=== PATIENT | male | born 1950 | race Caucasian/White ===

== ENCOUNTER 2023-08-09 09:36 | Emergency (ER) | payer MEDICARE, OTHER, SELFPAY ==
[2023-08-09 09:38] VITALS: BP 151/87
--- NOTE | 2023-08-09 10:20 | ED.GENMED ---
History of Present Illness
General
Chief Complaint: Fatigue
Time Seen by Provider: 08/09/23 10:05
History of Present Illness
History of Present Illness:
73-year-old male with history of hypertension presenting to the emergency department for an episode of nausea and 'the sweats '. Patient reports this morning he was on the toilet, with having a bowel movement. Denies any straining, he started to
feel unwell with nausea and diaphoresis. Denies associated chest pain or difficulty breathing. Patient was concerned because he was told in the past that he has calcifications around his aorta, however denies any known history of aneurysm. Denies
any fever or sick contacts. Denies any vomiting. Denies any focal weakness or sensory deficits to his extremities. Reports that he is feeling better. Denies additional acute medical complaints
Past History
Past History
ED Past Medical History: Cancer (Prostate), HTN, Hypercholesterolemia, Other (Polymyalgia rheumatica, sleep apnea, mildly dilated aortic root, diverticulitis, irritable bowel, back pain) and Other (diverticulosis)
ED Past Surgical History: Orthopedic
Social History
Tobacco: Non-smoker
Alcohol: Occasional
Drug: None
Personal:
Living: with family
Employment: Employed
Family History
Family History: Other (nc); Negative Early CAD or CAD
Phy Exam
Physical Exam
Physical Exam:
Reports normal GENERAL: Alert , in no apparent distress
EYE: pupils equal and reactive
NECK: Supple, no significant adenopathy.
ENT: o/p clr, mmm.
CARDIAC: Regular rate and rhythm .
LUNGS: Clear breath sounds bilaterally, no acute respiratory distress, no wheezes/rales/rhonchi
ABDOMEN: Soft, without focal tenderness, no r/g
NEUROLOGICAL: Alert and oriented, no focal neuro deficits
SKIN: Warm and dry, skin intact.
MUSCULOSKELETAL: No edema, well perfused.
PSYCH: Normal and appropriate interaction.
Course
Orders/Labs/Results
Orders:
Orders
08/09/23 10:18
Electrocardiogram (*1) Urgent
Reason for Study: Other
Other Reason for Exam: nausea
EKG- Treatment ONCE
08/09/23 10:48
Complete Blood Count/With Diff Urgent
Comprehensive Metabolic Panel Urgent
Troponin I Urgent
Abnormal Lab Results
08/09/23
10:48
RBC 3.92 L 10^6/uL
(4.70-6.10)
Hgb 11.6 L g/dL
(13.0-18.0)
Hct 33.9 L %
(39.0-52.0)
Absolute Monos (auto) 0.7 H 10^3/uL
(0.1-0.6)
Lymphocytes % 19.9 L %
(20.5-51.1)
Monocytes % 9.7 H %
(1.7-9.3)
BUN 23 H mg/dl
(9-20)
Total Protein 6.1 L g/dl
(6.3-8.2)
08/09/23 10:48
08/09/23 10:48
Vital Signs
Initial and Last Documented VS:
Initial Vital Signs
Temp Pulse Resp BP Pulse Ox
97.7 F 70 16 151/87 98
08/09/23 09:38 08/09/23 09:38 08/09/23 09:38 08/09/23 09:38 08/09/23 09:38
Last Documented Vital Signs
Temp Pulse Resp BP Pulse Ox
97.7 F 69 16 151/87 95
08/09/23 09:38 08/09/23 11:00 08/09/23 11:00 08/09/23 09:38 08/09/23 11:00
MDM/Problems Addressed
MDM/Problems Addressed:
73-year-old male with history of hypertension presenting for an episode of nausea and sweating prior to arrival. Vital signs on arrival significant for mild hypertension.
On physical exam, patient is resting comfortably, no acute distress or discomfort. Unremarkable cardiac, pulmonary, abdominal exam. Patient symptomatic. Presently hemodynamically stable. Low suspicion for pathology to patient symptoms. Patient
expresses concern over prior history of 'calcifications to aorta '. In review of EMR, patient had a CT chest in 12/12/2022 which showed calcifications of his coronary arteries, no findings of aneurysm. Suspected CAD. EKG obtained, nonischemic. No
focal neurologic deficits or concern for central neurologic process. Will plan for screening laboratory analysis and continue cardiac monitoring
11:30 -patient's labs are unremarkable. Troponin is undetectable. Vitals remained stable. On reassessment, patient continues to rest comfortably, asymptomatic, notes that he is still little fatigued. Otherwise without chest pain, nausea,
diaphoresis. 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 Patient agreeable to plan. Strict return precautions communicated and patient verbalized understanding
*Critical Care Note
Total Time (30-74mins, 75-104mins- exclusive of procedures): Not Applicable
ED Attending Note
-
Portions of this chart may have been created with voice recognition software.� Occasional wrong word or��sound alike� substitutions may have occurred due to the inherent limitations of voice recognition software.
Discharge Plan
Departure
Prescriptions:
No Action
multivitamin 1 EACH tablet
1 ea PO DAILY
leflunomide [Arava] 20 MG tablet
20 mg PO DAILY
Ca-D3-mag qh-xotj-hsn-rose-bor [Calcium 600-D3 Plus (mag-zinc)] 1 EACH tablet
1 ea PO DAILY
amitriptyline 10 MG tablet
10 mg PO HS
atorvastatin 40 mg Tablet
40 mg PO DAILY
lisinopril 20 mg Tablet
20 mg PO DAILY
fexofenadine 180 mg Tablet
180 mg PO DAILY PRN (Reason: Allergy symptoms)
amlodipine 5 mg Tablet
5 mg PO DAILY
prednisone 1 mg Tablet
1 mg PO DAILY
aspirin 81 mg Tablet,Chewable
81 mg PO DAILY
hydrochlorothiazide 25 mg Tablet
25 mg PO DAILY
fluticasone propionate 50 mcg/actuation [place],Suspension
2 spray INTRANASAL DAILY
doxycycline hyclate 100 mg Capsule
100 mg PO Q12 Qty: 28 0RF
oxycodone-acetaminophen [Percocet] 5-325 mg tablet
1 - 2 tab PO Q6HPRN PRN (Reason: pain) Qty: 14 0RF
Referrals:
Salomón Gillis MD [Family Provider] -
Interventions
Interventions:
*Risk Screen - Suicide Last Done: 08/09/23 09:38
*General Assessment Last Done: 08/09/23 09:38
*Neglect/Abuse Screening Last Done: 08/09/23 09:38
ED- Fall Risk Assessment Last Done: 08/09/23 11:00
*ED COVID-19 Vaccine History Last Done: 08/09/23 10:59
Discharge Date and Time
Print Language: SETSWANA
[2023-08-09 10:56] LABS: % Basophils 0.6 % (0-2); % Eosinophils 3.9 % (0-6); % Immature Granulocytes 0.3 % (0-0.5); % Lymphocytes 19.9 % (20.5-51.1); % Monocytes 9.7 % (1.7-9.3); % Neutrophils 65.6 % (42.2-75.2); Absolute Eosinophils 0.3 10^3/uL (0-0.7); Absolute Lymphocytes 1.4 10^3/uL (1.2-3.4); Absolute Monocytes 0.7 10^3/uL (0.1-0.6); Absolute Neutrophils 4.7 10^3/uL (1.4-6.5); Hematocrit 33.9 % (39.0-52.0); Hemoglobin 11.6 g/dL (13.0-18.0); Mean Corp Hgb Conc. 34.2 g/dL (33.0-37.0); Mean Corpuscular Hgb 29.6 pg (27.0-31.0); Mean Corpuscular Volume 86.5 fL (80.0-94.0); Mean Platelet Volume 9.1 fL (7.4-10.4); Nucleated Red Blood Cells % 0 % (-); Platelet Count 217 10^3/uL (130-400); Red Blood Cell Count 3.92 10^6/uL (4.70-6.10); Red Cell Dist. Width 12.2 % (11.5-14.5); White Blood Cell Count 7.2 10^3/uL (4.8-10.8)
[2023-08-09 10:58] VITALS: BMI 33.5
[2023-08-09 11:14] LABS: ALT (SGPT) 27 U/L (0-50); AST (SGOT) 32 U/L (17-59); Albumin 3.6 g/dl (3.5-5.0); Alkaline Phosphatase 74 U/L (38-126); Blood Urea Nitrogen 23 mg/dl (9-20); Calcium 8.9 mg/dl (8.4-10.2); Carbon Dioxide 29 mmol/L (22-30); Chloride 100 mmol/L (98-107); Estimated Creatinine Clearance 75 ml/min; Glucose 85 mg/dl (70-99); Sodium 135 mmol/L (135-145); Total Bilirubin 0.7 mg/dl (0.2-1.3); Total Protein 6.1 g/dl (6.3-8.2); eGFR > 60.00
[2023-08-09 11:20] LABS: Troponin I < 0.012 ng/ml
[2023-08-09 12:07] VITALS: BP 119/91
== END 2023-08-09 12:08 | disposition home or self-care (01) ==
LOC: EMR 09:36
PROVIDERS: EMERGENCY PHYSICIAN Student in an Organized Health Care Education/Training Program; FAMILY PHYSICIAN Family Medicine
DX: R53.83 Other fatigue (principal); I10 Essential (primary) hypertension
CPT/HCPCS: 99284; 80053; 84484; 85025; 93005

== ENCOUNTER 2024-01-21 09:37 | Day surgery (SDC) | payer MEDICARE, OTHER, SELFPAY ==
[2024-01-01 14:03] VITALS: BMI 32.7
[2024-01-01 14:08] LABS: Hematocrit 37.8 % (39.0-52.0); Hemoglobin 13.1 g/dL (13.0-18.0); Mean Corp Hgb Conc. 34.7 g/dL (33.0-37.0); Mean Corpuscular Hgb 30.3 pg (27.0-31.0); Mean Corpuscular Volume 87.3 fL (80.0-94.0); Mean Platelet Volume 9.8 fL (7.4-10.4); Platelet Count 248 10^3/uL (130-400); Red Blood Cell Count 4.33 10^6/uL (4.70-6.10); Red Cell Dist. Width 12.9 % (11.5-14.5); White Blood Cell Count 9.4 10^3/uL (4.8-10.8)
[2024-01-01 14:26] LABS: Glycohemoglobin (HgbA1c) 5.2 % (4.0-5.6)
[2024-01-01 14:39] LABS: ALT (SGPT) 23 U/L (0-50); AST (SGOT) 28 U/L (17-59); Albumin 4.4 g/dl (3.5-5.0); Alkaline Phosphatase 75 U/L (38-126); Blood Urea Nitrogen 27 mg/dl (9-20); Calcium 9.6 mg/dl (8.4-10.2); Carbon Dioxide 28 mmol/L (22-30); Chloride 99 mmol/L (98-107); Estimated Creatinine Clearance 68 ml/min; Glucose 78 mg/dl (70-99); Potassium 4.8 mmol/L (3.5-5.1); Sodium 139 mmol/L (135-145); Total Bilirubin 0.8 mg/dl (0.2-1.3); eGFR > 60.00
[2024-01-11 11:14] VITALS: BMI 32.7
[2024-01-21] VITALS (16 sets, daily range): BP systolic 100–133; BP diastolic 46–85; PULSE 68; O2SAT 98; BMI 32.7
[2024-01-21] MEDS: TYLENOL 650 MG PO ×4 (10:29→23:10)
[2024-01-21] MEDS: CELEBREX 200 MG PO (10:29)
[2024-01-21] MEDS: NORMOSOL-R/PLASMALYTE-A 1000 IV ×2 (11:02→18:41)
--- NOTE | 2024-01-21 13:17 | W.DS.TRANS ---
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
-
Discharge Instructions:
Discharge Diagnosis/Procedures L TKA Dr. Sidhu 01/21/24
Diet As tolerated
Activity With Walker
Driving Restrictions No driving
Bathing Restrictions OK to Shower
Instructions:
Stand-Alone Forms: Total Hip/Knee Replacement D/C
Changes to Home Medications: Yes
Discharge Medications:
DC Medications w/original date entered in [facility]
multivitamin 1 ea PO DAILY Supplement 09/10/19
calcium 600 mg-D3 20 mcg-magnesium 50 as-Je-gihddu-obie-boron tablet (Calcium 600-D3 Plus (mag-zinc)) 1 ea PO DAILY Supplement 01/05/20
aspirin 81 mg chewable tablet 81 mg PO DAILY Blood Clot Prevention/Tx 07/22/22
atorvastatin 40 mg tablet 80 mg PO DAILY High Cholesterol 07/22/22
fluticasone propionate 50 mcg/actuation nasal spray,suspension 2 spray intranasal DAILY Congestion 07/22/22
hydrochlorothiazide 25 mg tablet 25 mg PO DAILY Fluid Retention/Swelling 07/22/22
lisinopril 20 mg tablet 40 mg PO DAILY Blood Pressure 07/22/22
duloxetine 30 mg capsule,delayed release 30 mg PO BID 01/11/24
mupirocin 2 % topical ointment 1 applic topical BID 01/11/24
pregabalin 150 mg capsule 150 mg PO BID 01/11/24
acetaminophen 325 mg tablet (Tylenol) 650 mg (2 x 325 mg) PO QID #1 tab 01/21/24
aspirin 325 mg tablet 325 mg PO DAILY blood clot prevention #1 tab 01/21/24
celecoxib 100 mg capsule 100 mg PO BID Anti-inflammatory #14 caps 01/21/24
dexamethasone 4 mg tablet 4 mg PO BID inflammation #6 tabs 01/21/24
docusate sodium 100 mg capsule (Colace) 100 mg PO BID stool softner #1 cap 01/21/24
magnesium hydroxide 400 mg/5 mL oral suspension (Milk of Magnesia) 30 ml PO HS PRN Constipation #1 mL 01/21/24
ondansetron 4 mg disintegrating tablet 4 mg PO Q6H PRN n/v #20 tabs 01/21/24
oxycodone 5 mg tablet 5 mg PO Q6H PRN 1 tab moderate pain, 2 tabs severe pain #30 tabs 01/21/24
sennosides 8.6 mg tablet (Senokot) 17.2 mg (2 x 8.6 mg) PO BID laxative #2 tabs 01/21/24
Home Medication Changes
aspirin 325 mg tablet 325 mg PO DAILY blood clot prevention #1 tab 01/21/24
celecoxib 100 mg capsule 100 mg PO BID Anti-inflammatory #14 caps 01/21/24
dexamethasone 4 mg tablet 4 mg PO BID inflammation #6 tabs 01/21/24
docusate sodium 100 mg capsule (Colace) 100 mg PO BID stool softner #1 cap 01/21/24
magnesium hydroxide 400 mg/5 mL oral suspension (Milk of Magnesia) 30 ml PO HS PRN Constipation #1 mL 01/21/24
ondansetron 4 mg disintegrating tablet 4 mg PO Q6H PRN n/v #20 tabs 01/21/24
oxycodone 5 mg tablet 5 mg PO Q6H PRN 1 tab moderate pain, 2 tabs severe pain #30 tabs 01/21/24
sennosides 8.6 mg tablet (Senokot) 17.2 mg (2 x 8.6 mg) PO BID laxative #2 tabs 01/21/24
Pending Results: No
--- NOTE | 2024-01-21 13:18 | W.PN.UPDATE ---
Update Note
Progress Note Update
L TKA Dr. Sidhu 01/21/24
Hx orthostasis-+ Midodrine if indicated
Pain control inpatient as previous-steroid, Toradol, Dilaudid prn-Ultram standing order-resume home Lyrica
[2024-01-21] MEDS: DILAUDID 4 MG PO (15:58)
--- NOTE | 2024-01-21 18:30 | PTCARENOTE ---
Received patient from PACU. AAOx3, a bit drowsy. Patient oriented to room, call barillas in reach. Patient voided without difficulty.
[2024-01-21] MEDS: ASPIRIN 325 MG PO (18:43)
[2024-01-21] MEDS: ULTRAM 50 MG PO ×2 (18:43→21:52)
--- NOTE | 2024-01-21 19:15 | PTCARENOTE ---
01/20 Pt 73y/o received on 2S at 18:00, admission done on nightshift. Pt had a LTKA Dr. Sidhu. PMH back pain, frequent headaches, loss of consciousness, neck pain, sciatics, sleep apnea (pt had Inspira placed), HTN, HLD, diverticulitis, IBS, BPH,
Arthritis, OA, spinal stenosis, torn rotator cuff, anemia, cancer, foot surgery, LTHA, b/l knee replacements. I met pt at change of shift with family in pt's room, pt A0x3, eating dinner, bed in a low position, call light in reach, care ongoing.
[2024-01-21] MEDS: LIPITOR 80 MG PO (20:15)
[2024-01-21] MEDS: SENOKOT 17.2 MG PO (20:15)
[2024-01-21] MEDS: BACTROBAN 2% OINTMENT 1 APPLIC NASAL (20:15)
[2024-01-21] MEDS: COLACE 100 MG PO (20:15)
[2024-01-21] MEDS: ANCEF 5 IV (20:31)
[2024-01-21] MEDS: TORADOL 15 MG IV (20:55)
[2024-01-21] MEDS: DECADRON 6 MG IV (20:55)
[2024-01-21] MEDS: CYMBALTA DELAYED RELEASE 20 MG PO (21:00)
[2024-01-21] MEDS: PEPCID 20 MG PO (21:10)
[2024-01-21] MEDS: LYRICA 150 MG PO (21:10)
[2024-01-22] VITALS (7 sets, daily range): BP systolic 113–156; BP diastolic 72–97; PULSE 63–84; O2SAT 94
[2024-01-22] MEDS: ROXICODONE 10 MG PO ×2 (02:23→06:25)
[2024-01-22] MEDS: TYLENOL 650 MG PO ×3 (03:00→12:30)
[2024-01-22] MEDS: ANCEF 5 IV (04:05)
[2024-01-22] MEDS: DECADRON 6 MG IV (06:09)
[2024-01-22] MEDS: TORADOL 15 MG IV (06:09)
[2024-01-22] MEDS: CYMBALTA DELAYED RELEASE 20 MG PO (07:56)
[2024-01-22] MEDS: LYRICA 150 MG PO (07:56)
[2024-01-22] MEDS: MOBIC 15 MG PO (07:56)
[2024-01-22] MEDS: ASPIRIN 325 MG PO (07:57)
[2024-01-22] MEDS: COLACE 100 MG PO (07:57)
[2024-01-22] MEDS: ULTRAM 50 MG PO ×2 (07:57→12:30)
[2024-01-22] MEDS: SENOKOT 17.2 MG PO (07:57)
[2024-01-22] MEDS: BACTROBAN 2% OINTMENT 1 APPLIC NASAL (07:58)
--- NOTE | 2024-01-22 10:48 | CM ---
Reviewed the chart notes and spoke with the patient at the bedside. The patient resides with his spouse in a two story home with two steps to enter. The patient has a cane, walker, shower chair, shower rails, and inspire for LUIS. The patient has
had VN in remote past, but no SNF/rehab. The patient confirmed PCP is Dr. Salomón Gillis and pharmacy is [facility]. Patient plans on outpatient therapy at [facility]. The patient's spouse will be providing transportation home.
CM continues to be available to patient/family and is monitoring medical plan for needs at discharge.
Plan: Discharge to home when medically stable.
[2024-01-22] MEDS: ProAmatine 5 MG PO (10:54)
[2024-01-22] MEDS: NORMOSOL-R/PLASMALYTE-A 500 IV (10:54)
--- NOTE | 2024-01-22 10:57 | W.PN.ORTHO ---
Today's Communication / Plan
-
d/c when stable
Assessment
.
Distal Motor Intact: Yes
Dressing:
Clean, dry and intact.
Assessment:
Lightheaded at rest with hx orthostasis-+ Midodrine + IVF bolus and recheck orthstatics prior to d/c
Pain control inpatient as previous-steroid, Toradol, Dilaudid prn-Ultram standing order-resume home Lyrica-well controlled
Plan
.
Surgery / Date: L TKA Dr. Sidhu 01/21/24
DVT Prophylaxis: Aspirin
Activity:
Out of bed.
PT/OT
Discharge Plan: Home w/ Outpatient PT
Subjective
.
.:
Patient lightheaded while seated
Vital Signs and Labs
.
Vital Signs and Labs:
Lab Results
01/01/24 13:00
01/01/24 13:00
Temp Pulse Resp BP Pulse Ox
97.9 F 67 17 125/77 94
01/22/24 08:15 01/22/24 08:15 01/22/24 08:15 01/22/24 08:15 01/22/24 08:15
Non-invasive Hgb result: 14.7
Physical Exam
-
HEENT: No pallor, cyanosis, or jaundice. Throat clear.
NECK: Supple. No JVD.
RESPIRATORY: Lungs clear to auscultation.
CVS: S1, S2 normal. RRR.� No murmur, rub or gallop.
ABDOMEN: Soft, non-tender. No distension. BS+/normal.
EXTREMITIES: strength equal, no calf pain with palpation
SPECIAL EDUCATION SUPERVISOR: AOx3. No focal deficits. furniture and bedding inspector grossly intact
== END 2024-01-22 16:07 | disposition home or self-care (01) ==
LOC: SDS 09:37
PROVIDERS: ATTENDING PHYSICIAN Specialist; FAMILY PHYSICIAN Family Medicine; REFERRING PHYSICIAN Internal Medicine
DX: M17.12 Unilateral primary osteoarthritis, left knee (principal); E66.9 Obesity, unspecified; Z68.32 Body mass index [BMI] 32.0-32.9, adult; Z96.653 Presence of artificial knee joint, bilateral
CPT/HCPCS: 27447; 36415; 73560; 80053; 83036; 85027; 87070; 97116; 97162; 97166; 97530; C1713; C1776

== ENCOUNTER → 2024-04-25 13:16 | Outpatient (REF) | payer MEDICARE, OTHER, SELFPAY | LOC: RCS 13:16 | PROVIDERS: ATTENDING PHYSICIAN Internal Medicine; FAMILY PHYSICIAN Family Medicine | DX: I25.10 Atherosclerotic heart disease of native coronary artery without angina pectoris (principal); I10 Essential (primary) hypertension; I77.810 Thoracic aortic ectasia; R00.1 Bradycardia, unspecified; R06.09 Other forms of dyspnea | CPT/HCPCS: 93017; 93350 ==

== ENCOUNTER → 2024-04-29 08:20 | Outpatient (REF) | payer MEDICARE, OTHER, SELFPAY | LOC: HWRCS 08:20 | PROVIDERS: ATTENDING PHYSICIAN Internal Medicine; FAMILY PHYSICIAN Family Medicine | DX: I25.10 Atherosclerotic heart disease of native coronary artery without angina pectoris (principal); I10 Essential (primary) hypertension; I77.810 Thoracic aortic ectasia; R00.1 Bradycardia, unspecified; R06.09 Other forms of dyspnea | CPT/HCPCS: 93306 ==

== ENCOUNTER → 2024-07-04 10:35 | Outpatient (REF) | payer MEDICARE, OTHER, SELFPAY | LOC: HWRAD 10:35 | PROVIDERS: ATTENDING PHYSICIAN Psychiatry & Neurology Neurology; FAMILY PHYSICIAN Family Medicine | DX: M54.12 Radiculopathy, cervical region (principal); M54.18 Radiculopathy, sacral and sacrococcygeal region | CPT/HCPCS: 72125; 72131 ==

== ENCOUNTER → 2024-07-17 08:02 | Outpatient (REF) | payer MEDICARE, OTHER, SELFPAY | LOC: EMG 08:02 | PROVIDERS: ATTENDING PHYSICIAN Psychiatry & Neurology Neurology; FAMILY PHYSICIAN Family Medicine | DX: M54.12 Radiculopathy, cervical region (principal); R20.0 Anesthesia of skin; G56.03 Carpal tunnel syndrome, bilateral upper limbs | CPT/HCPCS: 95886; 95911 ==

== ENCOUNTER → 2024-12-09 13:49 | Outpatient (REF) | payer MEDICARE, OTHER, SELFPAY | LOC: HWRAD 13:49 | PROVIDERS: ATTENDING PHYSICIAN Nurse Practitioner; FAMILY PHYSICIAN Family Medicine | DX: M25.551 Pain in right hip (principal) | CPT/HCPCS: 73522 ==